=== PATIENT | female | born 1950 | race Caucasian/White ===

== ENCOUNTER → 2020-10-18 | Outpatient (REF) | payer OTHER, MEDICARE | LOC: M LAB REF 13:50 | PROVIDERS: ATTEND Physician Assistant | DX: D04.71 Carcinoma in situ of skin of right lower limb, including hip (principal) ==

== ENCOUNTER → 2021-03-08 | Outpatient (CLI) | payer OTHER, MEDICARE, BC ==
[2021-03-08 16:00] LABS: FOLATE > 24.0 NG/ML; FREE T4 1.03 NG/DL (0.76-1.46); RHEUMATOID FACTOR QUANT < 10.0 IU/ML (<15.0); T UPTAKE 32 % (30-39); THYROXINE (T4) 9.5 UG/DL (4.5-12.0); TOTAL PROTEIN 7.1 GM/DL (6.4-8.2); VITAMIN B12 LEVEL 1632 PG/ML
[2021-03-08 16:12] LABS: HEMOGLOBIN A1c 5.4 %
[2021-03-09 14:14] LABS: ALBUMIN 4.43 GM/DL (3.29-5.55); ALBUMIN % 62.4 % (55.8-66.1); ALPHA-1-GLOBULIN % 4.1 % (2.9-4.9); ALPHA-1-GLOBULINS 0.29 GM/DL (0.17-0.41); ALPHA-2-GLOBULINS 0.77 GM/DL (0.42-0.99); ALPHA-2-GLOBULINS % 10.9 % (7.1-11.8); BETA-1-GLOBULINS % 7.1 % (4.7-7.2); BETA-2-GLOBULINS 0.37 GM/DL (0.19-0.55); BETA-2-GLOBULINS % 5.2 % (3.2-6.5); GAMMA GLOBULIN % 10.3 % (11.1-18.8); GAMMA GLOBULINS 0.73 GM/DL (0.65-1.58)
== END ==
LOC: M PLALAB 13:55
PROVIDERS: ATTEND Psychiatry & Neurology Neurology
DX: E11.40 Type 2 diabetes mellitus with diabetic neuropathy, unspecified (principal)

== ENCOUNTER → 2024-03-05 | Outpatient (REF) ==
[2024-03-05 14:25] LABS: COLLAGEN EPINEPHRINE 112 SECONDS (74-162)
== END ==
LOC: M LAB REF 12:10
PROVIDERS: ATTEND Physician Assistant
DX: Z00.00 Encounter for general adult medical examination without abnormal findings (principal)